=== PATIENT | male | born 1990 | race Two or more races ===

== ENCOUNTER → 2023-05-30 | Outpatient (CLI) | payer OTHER ==
[2023-05-30 15:44] LABS: BLOOD UREA NITROGEN 23 MG/DL (9-23); CALCIUM LEVEL 8.9 MG/DL (8.5-10.1); CARBON DIOXIDE LEVEL 31 MMOL/L (20-31); CHLORIDE LEVEL 107 MMOL/L (98-107); CREATININE FOR GFR 1.16 MG/DL (0.70-1.30); GLOMERULAR FILTRATION RATE > 60.0 (>60); GLUCOSE, FASTING 74 MG/DL (60-100); POTASSIUM SERUM 4.2 MMOL/L (3.5-5.1); SODIUM LEVEL 143 MMOL/L (136-145)
== END ==
LOC: M RAD 14:25
PROVIDERS: ATTEND Nurse Practitioner Family
DX: Q62.11 Congenital occlusion of ureteropelvic junction (principal)

== ENCOUNTER 2023-09-28 22:10 | Emergency (ER) | payer OTHER ==
[~2023-09-28] VITALS: Ht 188 cm; Wt 89.0 kg
[2023-09-28 22:50] LABS: BASO % 0.2 % (0.0-1.0); EOS # 0.3 10^3/uL (0.0-0.5); EOS % 3.5 % (0.0-3.0); HEMATOCRIT 44.1 % (42.0-52.0); HEMOGLOBIN 15.3 g/dl (13.5-17.5); LYMPH # 3.8 10^3/uL (1.5-5.0); LYMPH % 43.8 % (24.0-44.0); MEAN CORPUSCULAR HEMOGLOBIN 29.8 pg (27.0-33.0); MEAN CORPUSCULAR HGB CONC 34.7 g/dl (32.0-36.5); MONO # 0.7 10^3/uL (0.0-0.8); MONO % 8.4 % (2.0-8.0); NEUTROPHILS # 3.8 10^3/uL (1.5-8.5); NEUTROPHILS % 43.9 % (36.0-66.0); PLATELET COUNT, AUTOMATED 250 10^3/uL (150-450); RED BLOOD COUNT 5.13 10^6/uL (4.30-6.10); WHITE BLOOD COUNT 8.6 10^3/uL (4.0-10.0)
[2023-09-28] MEDS: KETOROLAC 30 MG/ML 1ML VIAL IV ONE (23:05)
[2023-09-28] MEDS: ONDANSETRON 4MG 2ML VIAL IV ONE (23:05)
[2023-09-28] MEDS: NS 1,000 ML IV ONE (23:05)
[2023-09-28 23:13] LABS: LIPASE 50 U/L (12-53)
[2023-09-28 23:15] LABS: ALBUMIN 4.5 G/DL (3.2-5.2); ALKALINE PHOSPHATASE 125 U/L (46-116); ALT/SGPT 28 U/L (7.0-40); AST/SGOT 22 U/L (<34); BILIRUBIN,DIRECT 0.3 MG/DL (<0.4); BILIRUBIN,TOTAL 1.1 MG/DL (0.3-1.2); BLOOD UREA NITROGEN 21 MG/DL (9-23); CALCIUM LEVEL 9.7 MG/DL (8.5-10.1); CARBON DIOXIDE LEVEL 29 MMOL/L (20-31); CHLORIDE LEVEL 107 MMOL/L (98-107); CREATININE FOR GFR 1.33 MG/DL (0.70-1.30); GLOMERULAR FILTRATION RATE > 60.0 (>60); GLUCOSE, FASTING 106 MG/DL (60-100); POTASSIUM SERUM 3.8 MMOL/L (3.5-5.1); SODIUM LEVEL 141 MMOL/L (136-145); TOTAL PROTEIN 7.1 G/DL (5.7-8.2)
[2023-09-28 23:55] VITALS: TEMP 98.7
[2023-09-28] MEDS: TAMSULOSIN 0.4 MG CAP PO ONE (23:58)
[2023-09-29] MEDS ORDERED: FLOM0.4C39 PO (00:28)
[2023-09-29] MEDS ORDERED: KETO10TAB PO (00:28)
[2023-09-29] MEDS ORDERED: ONDA-282 PO (00:28)
[2023-09-29 00:45] VITALS: BP 127/73; O2SAT 98
[2023-09-29] MEDS: NORCO 5/325MG TABLET (HOME DOSE PACK) PO ONE (00:52)
== END 2023-09-29 00:55 | disposition home or self-care (01) ==
LOC: M ED 22:10
DX: N20.1 Calculus of ureter (principal); Z87.442 Personal history of urinary calculi
CPT/HCPCS: 74176; 80048; 80076; 81000; 81015; 83690; 85025; 87086; 93041; 96361; 96374; 96375; 99284; J1885; J2405

== ENCOUNTER → 2023-11-23 | Outpatient (REF) | payer OTHER ==
[~2023-11-23] MED LIST: FLOM0.4C39 PO; KETO10TAB PO; ONDA-282 PO
[2023-11-23 08:40] LABS: SEMEN APPEARANCE OPAQUE (OPAQUE); SEMEN VISCOSITY LIQUID (LIQUID); SEMEN VOLUME 5.1 ml (2.0-5.0); WBC CONCENTRATION <=1 M/ml (<=1 M/ml)
[2023-11-23 08:41] LABS: SPERM CONCENTRATION 5.7 M/ml (>=15.0)
== END ==
LOC: M LAB REF 08:19
PROVIDERS: ATTEND Physician Assistant
DX: Z30.8 Encounter for other contraceptive management (principal)

== ENCOUNTER → 2023-12-27 | Outpatient (CLI) | payer OTHER ==
[2023-12-27 12:00] LABS: SEMEN APPEARANCE OPAQUE (OPAQUE); SEMEN VISCOSITY LIQUID (LIQUID); SPERM CONCENTRATION 5.8 M/ml (>=15.0); WBC CONCENTRATION <=1 M/ml (<=1 M/ml)
[2023-12-27 12:56] LABS: ESTRADIOL < 19.0 PG/ML (<39.8); FOLLICLE STIMULATING HORMONE 7.5 mIU/ML (1.4-18.1); LUTEINIZING HORMONE 5.8 mIU/ML (1.5-9.3)
== END ==
LOC: M LAB 10:13
PROVIDERS: ATTEND Nurse Practitioner Family
DX: N46.9 Male infertility, unspecified (principal)

== ENCOUNTER 2024-01-04 22:03 | Emergency (ER) | payer OTHER ==
[~2024-01-04] VITALS: Ht 190.5 cm; Wt 88.5 kg
[2024-01-04 22:06] VITALS: TEMP 97.3
[2024-01-05] MEDS: FLUORESCEIN OPHTH 1MG STRIP OD ONE (01:35)
[2024-01-05] MEDS: TETRACAINE 0.5% OPHTH SOLN 4ML OD ONE (01:40)
[2024-01-05] MEDS ORDERED: VALT1TAB PO (01:50)
[2024-01-05] MEDS ORDERED: BACT800T5 PO (01:50)
[2024-01-05] MEDS: valACYclovir HCL 500 MG TAB PO ONE (01:59)
[2024-01-05] MEDS: BACTRIM 160MG/800MG DS TAB PO ONE (01:59)
[2024-01-05 02:10] VITALS: BP 129/75; O2SAT 98
== END 2024-01-05 02:11 | disposition home or self-care (01) ==
LOC: M ED 22:03
DX: L03.213 Periorbital cellulitis (principal); Z79.899 Other long term (current) drug therapy; Z79.2 Long term (current) use of antibiotics

== ENCOUNTER → 2024-01-22 | Outpatient (CLI) | payer OTHER ==
[~2024-01-22] MED LIST changes: +BACT800T5 PO; +VALT1TAB PO
== END ==
LOC: M RAD 09:23
PROVIDERS: ATTEND Nurse Practitioner Family
DX: I86.1 Scrotal varices (principal)

== ENCOUNTER → 2024-01-31 | Outpatient (CLI) | payer OTHER ==
[2024-01-31 09:57] LABS: HEMATOCRIT 48.6 % (42.0-52.0); HEMOGLOBIN 16.6 g/dl (13.5-17.5); MEAN CORPUSCULAR HEMOGLOBIN 29.1 pg (27.0-33.0); MEAN CORPUSCULAR HGB CONC 34.2 g/dl (32.0-36.5); MEAN CORPUSCULAR VOLUME 85.1 fl (80.0-96.0); PLATELET COUNT, AUTOMATED 212 10^3/uL (150-450); RED BLOOD COUNT 5.71 10^6/uL (4.30-6.10)
[2024-01-31 10:13] LABS: BLOOD UREA NITROGEN 26 MG/DL (9-23); CALCIUM LEVEL 9.6 MG/DL (8.5-10.1); CARBON DIOXIDE LEVEL 30 MMOL/L (20-31); CHLORIDE LEVEL 106 MMOL/L (98-107); CREATININE FOR GFR 1.11 MG/DL (0.70-1.30); GLOMERULAR FILTRATION RATE > 60.0 (>60); GLUCOSE, FASTING 78 MG/DL (60-100); POTASSIUM SERUM 4.6 MMOL/L (3.5-5.1); SODIUM LEVEL 142 MMOL/L (136-145)
== END ==
LOC: M LAB 08:28
PROVIDERS: ATTEND Nurse Practitioner Family
DX: Z01.818 Encounter for other preprocedural examination (principal)

== ENCOUNTER 2024-02-13 14:59 | Day surgery (SDC) | payer OTHER ==
[~2024-02-13] VITALS: Ht 190.5 cm; Wt 83.5 kg
[2024-02-13] MEDS ORDERED: LIDOCAINE 2% 100MG/5ML SDV (FOR ANES.) As Ordered ONE (16:27)
[2024-02-13] MEDS ORDERED: MIDAZOLAM INJ 2MG/2ML VIAL As Ordered ONE (16:27)
[2024-02-13] MEDS ORDERED: propofoL 200 MG/20 ML VIAL As Ordered ONE (16:27)
[2024-02-13] MEDS ORDERED: fentaNYL 100 MCG/2 ML INJECTION As Ordered ONE (16:27)
[2024-02-13] MEDS ORDERED: ONDANSETRON 4MG 2ML VIAL As Ordered ONE (16:27)
[2024-02-13] MEDS ORDERED: OXYC1TAB23 PO (17:30)
[2024-02-13] MEDS: ceFAZolin SOD 2 GM in IV 1 EA IV ONE (17:42)
[2024-02-13] MEDS ORDERED: ACETAMINOPHEN 1000MG/100ML IV BAG As Ordered ONE (17:45)
[2024-02-13] MEDS ORDERED: dexmedeTOMIDine (4MCG/ML)200MCG/50ML BTL (PRECEDEX) As Ordered ONE (17:48)
[2024-02-13] MEDS ORDERED: ePHEDrine SULFATE 25 MG/5 ML(5MG/ML) SYRINGE As Ordered ONE (18:56)
[2024-02-13] MEDS: LIDOCAINE 1% SDV 30ML VIAL As Ordered ONE (18:59)
[2024-02-13] MEDS ORDERED: NS 1,000 ML IV SCH (19:10)
[2024-02-13] MEDS ORDERED: HYDROMORPHONE HCL 0.5 MG/ 0.5 ML SYRINGE IV PRN (19:10)
[2024-02-13] MEDS ORDERED: fentaNYL 100 MCG/2 ML INJECTION IV PRN (19:10)
[2024-02-13] MEDS ORDERED: PERCOCET 5MG/325MG TAB PO PRN (19:40)
[2024-02-13] MEDS: oxyCODONE 5MG TAB PO PRN (19:46)
[2024-02-13] MEDS: ONDANSETRON 4MG 2ML VIAL IV PRN (19:47)
[2024-02-13 20:25] VITALS: BP 138/93; TEMP 97; O2SAT 100
== END 2024-02-13 20:55 | disposition home or self-care (01) ==
LOC: M SDC 14:59
PROVIDERS: ATTEND Urology
DX: I86.1 Scrotal varices (principal); N46.8 Other male infertility
CPT/HCPCS: 55530; J0131; J0665; J0690; J1100; J2250; J2405; J3010

== ENCOUNTER 2024-02-23 08:58 | Emergency (ER) | payer OTHER ==
[~2024-02-23] VITALS: Ht 190.5 cm; Wt 82.4 kg
[~2024-02-23 08:58] MED LIST changes: +OXYC1TAB23 PO
[2024-02-23] MEDS ORDERED: IBUP200T46 PO (09:12)
[2024-02-23 09:51] LABS: BASO % 0.4 % (0.0-1.0); EOS # 0.6 10^3/uL (0.0-0.5); EOS % 10.3 % (0.0-3.0); HEMATOCRIT 44.6 % (42.0-52.0); HEMOGLOBIN 15.3 g/dl (13.5-17.5); LYMPH # 1.5 10^3/uL (1.5-5.0); LYMPH % 27.5 % (24.0-44.0); MEAN CORPUSCULAR HEMOGLOBIN 29.1 pg (27.0-33.0); MEAN CORPUSCULAR HGB CONC 34.3 g/dl (32.0-36.5); MONO # 0.5 10^3/uL (0.0-0.8); MONO % 8.5 % (2.0-8.0); NEUTROPHILS # 2.9 10^3/uL (1.5-8.5); NEUTROPHILS % 53.1 % (36.0-66.0); PLATELET COUNT, AUTOMATED 249 10^3/uL (150-450); RED BLOOD COUNT 5.25 10^6/uL (4.30-6.10); WHITE BLOOD COUNT 5.5 10^3/uL (4.0-10.0)
[2024-02-23 10:19] LABS: LIPASE 48 U/L (12-53)
[2024-02-23 10:21] LABS: ALBUMIN 3.7 G/DL (3.2-5.2); ALKALINE PHOSPHATASE 119 U/L (40-129); ALT/SGPT 20 U/L (7.0-40); AST/SGOT 13 U/L (<34); BILIRUBIN,DIRECT 0.1 MG/DL (<0.4); BILIRUBIN,TOTAL 0.5 MG/DL (0.3-1.2); BLOOD UREA NITROGEN 32 MG/DL (9-23); CALCIUM LEVEL 9.7 MG/DL (8.5-10.1); CARBON DIOXIDE LEVEL 28 MMOL/L (20-31); CHLORIDE LEVEL 104 MMOL/L (98-107); CREATININE FOR GFR 0.88 MG/DL (0.70-1.30); GLOMERULAR FILTRATION RATE > 60.0 (>60); GLUCOSE, FASTING 110 MG/DL (60-100); POTASSIUM SERUM 4.5 MMOL/L (3.5-5.1); SODIUM LEVEL 140 MMOL/L (136-145); TOTAL PROTEIN 6.9 G/DL (5.7-8.2)
[2024-02-23] MEDS: BACITRACIN OINTMENT 30GM TUBE TOP ONE (12:05)
[2024-02-23] MEDS ORDERED: CEPH500C PO (12:07)
[2024-02-23 12:14] VITALS: BP 108/74; TEMP 98.1; O2SAT 98
== END 2024-02-23 12:20 | disposition home or self-care (01) ==
LOC: M ED 08:58
DX: T81.40XA Infection following a procedure, unspecified, initial encounter (principal)

== ENCOUNTER → 2024-03-07 | Outpatient (REF) | payer OTHER ==
[~2024-03-07] MED LIST changes: +CEPH500C PO; +IBUP200T46 PO
== END ==
LOC: M LABSMT 09:28
PROVIDERS: ATTEND Nurse Practitioner Family
DX: Z53.9 Procedure and treatment not carried out, unspecified reason (principal)

== ENCOUNTER → 2024-05-16 | Outpatient (CLI) | payer OTHER ==
[2024-05-16 11:35] LABS: SEMEN APPEARANCE OPAQUE (OPAQUE); SEMEN VISCOSITY LIQUID (LIQUID); SEMEN VOLUME 5.2 ml (2.0-5.0); WBC CONCENTRATION <=1 M/ml (<=1 M/ml)
[2024-05-16 11:36] LABS: SPERM CONCENTRATION 2.9 M/ml (>=15.0); TOTAL PROGRESSIVE SPERM 0 M/Ejac.
== END ==
LOC: M LAB 10:33
PROVIDERS: ATTEND Obstetrics & Gynecology Reproductive Endocrinology
DX: Z31.41 Encounter for fertility testing (principal)

== ENCOUNTER 2024-10-24 16:52 | Emergency (ER) | payer OTHER ==
[~2024-10-24] VITALS: Ht 188 cm; Wt 100.0 kg
[~2024-10-24 16:52] MED LIST changes: -FLOM0.4C39 PO; +PEPC1TAB5 PO; +PRED10TA2 PO; +TAMS-18 PO
[2024-10-24] MEDS ORDERED: AMOX875T PO (20:29)
[2024-10-24] MEDS: IBUPROFEN 600 MG TAB PO ONE (20:36)
[2024-10-24] MEDS: CIPRODEX OTIC SUSP 7.5 ML AD SCH (20:36)
[2024-10-24 20:39] VITALS: BP 133/93; TEMP 97.5; O2SAT 98
== END 2024-10-24 20:46 | disposition home or self-care (01) ==
LOC: M ED 16:52
DX: H60.91 Unspecified otitis externa, right ear (principal); H66.91 Otitis media, unspecified, right ear; Z88.1 Allergy status to other antibiotic agents; Z91.89 Other specified personal risk factors, not elsewhere classified